=== PATIENT | female | born 1965 | race Caucasian/White ===

== ENCOUNTER → 2019-12-21 | Outpatient (CLI) | payer BC ==
[~2019-12-21] MED LIST: CIPRO500 MG PO; DIFLUCAN200 MG PO; LEVOTHYROXIN0.088 MG PO; PHENAZOPYRIDIN200 M2 PO; PROZAC20 MG PO; ZPAK PO
== END ==
LOC: M.ULTRA 09:29
PROVIDERS: ATTEND Nurse Practitioner Family
DX: K76.0 Fatty (change of) liver, not elsewhere classified (principal)